=== PATIENT | female | born 1995 | race American Indian/Alaskan Native ===

== ENCOUNTER 2018-12-08 13:59 | Emergency (ER) | payer MEDICAID, OTHER ==
--- NOTE | 2018-12-08 14:31 | Emergency Department Report ---
Blank Doc - Documentation Documentation: 23 y o female LMP 09/2018 presents with pelvic cramping and back pain denies vag bleed, stated [facility] confirmed , urinary sx states vag d/c ua, labs, ACC
[2018-12-08] MEDS ORDERED: TYLENOL PO ONE (14:45)
--- NOTE | 2018-12-08 15:48 | Emergency Department Report ---
<STEPHANIE HAYWOOD - Last Filed: 12/08/18 15:47> ED HPI - General Chief complaint: Urogenital-Female Stated complaint: 10WKS /PAIN Time Seen by Provider: 12/08/18 14:25 Source: patient Mode of arrival: Ambulatory Limitations: No Limitations - History of Present Illness Initial comments: Patient is a 23-year-old female who is presenting with low abdominal crampiness. Patient states she is approximately 10 weeks the pain is worsened over the last day. Patient denies any vaginal bleeding or vaginal discharge or dysuria.. Patient was seen several weeks ago for urinary tract infection and states she took her antibiotics. Patient did have ultrasound that time to confirmed IUP. Patient denies any nausea vomiting. Pain is a 10 in severity. - Related Data Previous Rx's Medication Instructions Recorded Last Taken Type Acetaminophen [Tylenol] 325 mg PO DAILY PRN #20 capsule 12/08/18 Unknown Rx 21/Iron Fu/Folic Acid 1 each PO DAILY #30 tablet 12/08/18 Unknown Rx [ Complete Caplet] Allergies Allergy/AdvReac Type Severity Reaction Status Date / Time No Known Allergies Allergy Unverified 12/08/18 14:20 ED Review of Systems Comment: All other systems reviewed and negative ED Past Medical Hx - Past Medical History Previous Medical History?: Yes Additional medical history: Scoliosis - Surgical History Past Surgical History?: Yes Additional Surgical History: surgery for Scoliosis - Social History Smoking Status: Unknown if ever smoked Substance Use Type: None - Medications Home Medications: Home Medications Medication Instructions Recorded Confirmed Last Taken Type Acetaminophen [Tylenol] 325 mg PO DAILY PRN #20 capsule 12/08/18 Unknown Rx 21/Iron Fu/Folic Acid 1 each PO DAILY #30 tablet 12/08/18 Unknown Rx [ Complete Caplet] ED Physical Exam - General Limitations: No Limitations General appearance: alert, in no apparent distress - Head Head exam: Present: atraumatic, normocephalic - Eye Eye exam: Present: normal appearance - ENT ENT exam: Present: mucous membranes moist - Neck Neck exam: Present: normal inspection - Respiratory Respiratory exam: Present: normal lung sounds bilaterally. Absent: respiratory distress, wheezes, rales, rhonchi - Cardiovascular Cardiovascular Exam: Present: regular rate, normal rhythm. Absent: systolic murmur, diastolic murmur, rubs, gallop - GI/Abdominal GI/Abdominal exam: Present: soft, tenderness, normal bowel sounds. Absent: distended, guarding, rebound - Extremities Exam Extremities exam: Present: normal inspection - Back Exam Back exam: Present: normal inspection - Neurological Exam Neurological exam: Present: alert, oriented X3 - Psychiatric Psychiatric exam: Present: normal affect, normal mood - Skin Skin exam: Present: warm, dry, intact, normal color. Absent: rash ED Disposition Clinical Impression: Pelvic pain during Disposition: - TO HOME OR SELFCARE Condition: Stable Instructions: (ED) Additional Instructions: Follow-up with a OBGYN doctor in 3-5 days or if symptoms worsen and continue return to emergency room as soon as possible. Prescriptions: 21/Iron Fu/Folic Acid [ Complete Caplet] 1 each PO DAILY #30 tablet Acetaminophen [Tylenol] 325 mg PO DAILY PRN #20 capsule PRN Reason: Pain , Severe (7-10) [facility]Other] - 3-5 Days JULIOCESAR STERN MD [Staff Physician] - 3-5 Days [facility] [Provider Group] - 3-5 Days Forms: Work/School Release Form(ED) <MARY PAULINO - Last Filed: 12/08/18 18:23> ED Review of Systems ROS: Stated complaint: 10WKS /PAIN Other details as noted in HPI ED Course Vital Signs 12/08/18 12/08/18 14:27 14:56 Temperature 98 F Pulse Rate 70 Respiratory 18 16 Rate Blood Pressure 132/75 O2 Sat by Pulse 98 Oximetry ED Medical Decision Making - Lab Data Result diagrams: 12/08/18 16:20 12/08/18 16:20 - Medical Decision Making This is a 23-year-old female presents with pelvic pain with and UTI. Patient was orginally seen by Panda Pink and was signed out to me for a pending US results. Normal abdominal exam. US OB obtained and dictated by the radiologist. Ua obtained. Quantative serum test obtained. Patient notified of the US report with no questions noted by the patient. Labs unremarkable. Patient was instructed f/u with [facility] in 3-5 days. At time of discharge, the patient does not seem toxic or ill in appearance. No acute signs of distress noted. Patient agrees to discharge treatment plan of care. No further questions noted by the patient. Critical care attestation.: If time is entered above; I have spent that time in minutes in the direct care of this critically ill patient, excluding procedure time. ED Disposition Is pt being admited?: No Does the pt Need Aspirin: No
[2018-12-08 16:48] LABS: Basophils # (Auto) 0.1 K/mm3 (0.0-0.1); Basophils % (Auto) 0.5 % (0.0-1.8); Eosinophils # (Auto) 0.4 K/mm3 (0.0-0.4); Eosinophils % (Auto) 3.7 % (0.0-4.3); Lymphocytes # (Auto) 2.4 K/mm3 (1.2-5.4); Lymphocytes % (Auto) 25.6 % (13.4-35.0); Mean Corpuscular HGB Conc 37 % (30-34); Mean Corpuscular Volume 99 fl (79-97); Monocytes # (Auto) 0.9 K/mm3 (0.0-0.8); Monocytes % (Auto) 9.1 % (0.0-7.3); Platelet Count 311 K/mm3 (140-440); Red Blood Count 3.36 M/mm3 (3.65-5.03); Red Cell Distribution Width 12.6 % (13.2-15.2)
[2018-12-08 16:55] LABS: Hematocrit 33.4 % (30.3-42.9); Hemoglobin 12.3 gm/dl (10.1-14.3)
[2018-12-08 17:12] LABS: Alanine Aminotransferase 9 units/L (7-56); Albumin 3.9 g/dL (3.9-5); BUN/Creatinine Ratio 20; Blood Urea Nitrogen 8 mg/dL (7-17); Hemolysis Index 2
[2018-12-08 17:13] LABS: Bacteria,Urine 1+ /HPF (Negative); Bilirubin,Urine NEG (Negative); Blood,Urine LG (Negative); Color,Urine Yellow (Yellow); Mucus,Urine 3+ /HPF; RBC,Urine > 182.0 /HPF (0.0-6.0); Urobilinogen,Urine < 2.0 mg/dL (<2.0)
[2018-12-08 17:17] LABS: Bilirubin,Direct < 0.2 mg/dL (0-0.2)
--- NOTE | 2018-12-08 17:53 | Ultrasound Report ---
PROCEDURE: US OB <= 14 WEEKS FETUS TECHNIQUE: Early ultrasound using transabdominal and transvaginal imaging HISTORY: preg with abd pain . LMP 09/21/2018 with estimated age 11 weeks 1 day and EDC 06/28/2019. Bet a hCG quantitation 103,440 COMPARISONS: None FINDINGS: Uterus: Uterus is enlarged in size and normal and homogeneous in echogenicity without focal fibroid f ormation. The uterus measures 10.6 x 7.5 x 10.4 cm in size. There is a single early viable intraute rine gestation noted. Intrauterine gestation: There is a single intrauterine gestation identified with both a pole a nd yolk sac. heart rate is monitored at 162 BPM using M-mode doppler. Fedora-rump length measur ement of 4.2 cm corresponds to estimated age 11 weeks 0 days with EDC 06/29/2019. Ovaries: Both ovaries appear normal in size and echogenicity with normal bloodflow bilaterally. The right ovary measures 2.8 x 2.2 x 2.7 cm and the left ovary measures 3.3 x 1.9 x 1.8 cm in size. Kostas ateral complex cysts are seen. On the right, this measures 2.1 x 1.5 x 1.6 cm and is typical of a cor pus luteum with a thickened wall. On the left, this measures 1.6 x 1.2 x 1.0 cm and is typical of a h emorrhagic cyst with internal debris. Other: There is no evidence for solid adnexal mass is seen. There is no free fluid in the cul-de-s ac. IMPRESSION: Single intrauterine viable with an approximate age of 11 weeks 0 days. This document is electronically signed by Aminah Cherry MD., December 08 2018 05:51:45 PM ET
[2018-12-08 18:35] VITALS: BP 110/66
== END 2018-12-08 18:35 | disposition home or self-care (01) ==
LOC: ED 13:59
DX: O26.891 Other specified pregnancy related conditions, first trimester (principal); Z3A.10 10 weeks gestation of pregnancy
CPT/HCPCS: 36415; 76801; 76817; 80048; 80076; 81001; 83690; 84702; 85025; 99284

== ENCOUNTER 2019-02-16 14:28 | Outpatient (CLI) | payer MEDICAID ==
[2019-02-16 15:53] VITALS: BP 113/59
[2019-02-16] MEDS ORDERED: LACTATED RINGERS 500 ML IV ONE (17:00)
[2019-02-16] MEDS ORDERED: TYLENOL PO ONE (17:00)
[2019-02-16 17:45] LABS: Bacteria,Urine 1+ /HPF (Negative); Bilirubin,Urine NEG (Negative); Blood,Urine LG (Negative); Color,Urine Straw (Yellow); Mucus,Urine FEW /HPF; Urobilinogen,Urine < 2.0 mg/dL (<2.0)
== END 2019-02-16 18:40 | disposition home or self-care (01) ==
LOC: TRG 14:28
PROVIDERS: ATTEND Obstetrics & Gynecology
DX: O26.892 Other specified pregnancy related conditions, second trimester (principal); R25.2 Cramp and spasm; Z3A.19 19 weeks gestation of pregnancy
CPT/HCPCS: 59025; 81001; 96360; J7120

== ENCOUNTER 2019-03-03 16:32 | Outpatient (CLI) | payer MEDICAID ==
[2019-03-03 18:24] LABS: Bilirubin,Urine NEG (Negative); Blood,Urine LG (Negative); Color,Urine Yellow (Yellow); Mucus,Urine 1+ /HPF; Urobilinogen,Urine < 2.0 mg/dL (<2.0)
[2019-03-03 18:28] LABS: Protein,Urine >500 mg/dL (Negative)
[2019-03-03] MEDS ORDERED: LACTATED RINGERS 500 ML IV ONE (18:51)
[2019-03-03 20:15] VITALS: BP 119/79
--- NOTE | 2019-03-03 20:30 | Ultrasound Report ---
PROCEDURE: Limited obstetrical ultrasound. TECHNIQUE: Transabdominal scanning was performed to determine presentation and cervical length . HISTORY: cervical length COMPARISONS: Obstetrical ultrasound 12/08/2018. FINDINGS: There is a fetus in cephalic presentation. The cervical length is approximately 2.5 cm. Cardiac activ ity is documented at 128 bpm. IMPRESSION: Cervical length of 2.5 cm. This document is electronically signed by Keenan Saucedo MD., March 03 2019 08:28:51 PM ET
== END 2019-03-03 20:24 | disposition home or self-care (01) ==
LOC: TRG 16:32
PROVIDERS: ATTEND Obstetrics & Gynecology
DX: O47.02 False labor before 37 completed weeks of gestation, second trimester (principal); Z3A.22 22 weeks gestation of pregnancy
CPT/HCPCS: 36415; 59025; 76815; 81001; 82731; 87086

== ENCOUNTER 2019-04-29 17:23 | Outpatient (CLI) | payer MEDICAID ==
[2019-04-29 17:48] VITALS: BP 115/64
[2019-04-29] MEDS ORDERED: LACTATED RINGERS 1,000 ML IV SCH (18:00)
[2019-04-29 18:18] LABS: Bilirubin,Urine NEG (Negative); Blood,Urine LG (Negative); Color,Urine Yellow (Yellow); Mucus,Urine FEW /HPF
[2019-04-29 18:19] LABS: Protein,Urine >500 mg/dL (Negative)
[2019-04-29] MEDS ORDERED: ROCEPHIN/NS 1 GM/50 ML 1 GM/50 ML BAG IV ONE (19:58)
== END 2019-04-29 19:23 | disposition left against medical advice (07) ==
LOC: TRG 17:23
PROVIDERS: ATTEND Obstetrics & Gynecology
DX: O36.8130 Decreased fetal movements, third trimester, not applicable or unspecified (principal); O47.03 False labor before 37 completed weeks of gestation, third trimester; Z3A.31 31 weeks gestation of pregnancy
CPT/HCPCS: 59025; 81001; 87086; J0696; J7120

== ENCOUNTER 2019-06-27 19:49 | Inpatient (IN) | payer MEDICAID ==
[2019-06-27] MEDS ORDERED: SUBLIMAZE IV PRN (22:48)
[2019-06-27] MEDS ORDERED: BRETHINE SUB-Q PRN (22:48)
[2019-06-27] MEDS ORDERED: STADOL IV PRN (22:48)
[2019-06-27] MEDS ORDERED: CERVIDIL VG ONE (22:48)
[2019-06-27] MEDS ORDERED: BRETHINE IVP PRN (22:48)
[2019-06-27] MEDS ORDERED: AMBIEN PO PRN (22:52)
[2019-06-27] MEDS ORDERED: LACTATED RINGERS 1,000 ML IV SCH (23:00)
[2019-06-27 23:14] LABS: Hematocrit 27.2 % (30.3-42.9); Hemoglobin 9.3 gm/dl (10.1-14.3); Mean Corpuscular HGB Conc 34 % (30-34); Mean Corpuscular Volume 100 fl (79-97); Platelet Count 291 K/mm3 (140-440); Red Blood Count 2.71 M/mm3 (3.65-5.03); Red Cell Distribution Width 12.9 % (13.2-15.2)
--- NOTE | 2019-06-28 12:57 | History and Physical Report ---
History of Present Illness Date of examination: 06/28/19 Date of admission: 06/27/19 19:49 Chief complaint: IOl for IUGR at term per M Dr. Graves History of present illness: his is a 24 yo at 39 weeks here for IOL after having an appt for M notable IUGR and recommneded IOL. She is patient of [facility] and notable anxiety and depression no meds. 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 Treated for UTi with snehal neg. HX of shortened cervix at 20 weeks. She was also treated for trich and snehal neg. Past History Past Surgical History: other (breast bx ) [employer] History: herpes, trichomonas Family/Genetic History: diabetes, hypertension, other (bone cancer) Social history: single. denies: smoking, alcohol abuse - Obstetrical History Expected Date of Delivery: 06/29/19 Actual Gestation: 39 Week(s) 6 Day(s) : 2 Para: 1 Hx # Term Pregnancies: 1 Number of Pregnancies: 0 Spontaneous Abortions: 0 Induced : 0 Number of Living Children: 1 Medications and Allergies Allergies Allergy/AdvReac Type Severity Reaction Status Date / Time soy Allergy Itching Verified 06/28/19 06:35 Home Medications Medication Instructions Recorded Confirmed Last Taken Type Acetaminophen [Tylenol] 325 mg PO DAILY PRN #20 capsule 12/08/18 06/28/19 Unknown Rx 21/Iron Fu/Folic Acid 1 each PO DAILY #30 tablet 12/08/18 06/28/19 Unknown Rx [ Complete Caplet] valACYclovir [Valtrex] 500 mg PO BID 06/28/19 06/28/19 Unknown History Active Meds: Active Medications Butorphanol Tartrate (Stadol) 2 mg IV Q2H PRN PRN Reason: Pain , Severe (7-10) Fentanyl (Sublimaze) 100 mcg IV Q2H PRN PRN Reason: Labor Pain Lactated Ringer's (Lactated Ringers) 1,000 mls @ 125 mls/hr IV DIRECT CYRUS Terbutaline Sulfate (Brethine) 0.25 mg SUB-Q ONCE PRN PRN Reason: Hyperstimulation/Hypertonicity Terbutaline Sulfate (Brethine) 0.25 mg IVP ONCE PRN PRN Reason: Hyperstimulation/Hypertonicity Zolpidem Tartrate (Ambien) 5 mg PO QHS PRN PRN Reason: Sleep Last Admin: 06/27/19 23:55 Dose: 5 mg Documented by: Review of Systems All systems: negative - Vital Signs Vital signs: Vital Signs Temp Resp BP Pulse Ox 97.9 F 18 116/72 100 06/27/19 20:47 06/27/19 20:47 06/27/19 20:47 06/27/19 20:47 Temp Pulse Resp BP Pulse Ox 97.9 F 84 16 121/72 98 06/28/19 09:04 06/28/19 11:24 06/28/19 09:04 06/28/19 11:24 06/27/19 21:19 - Physical Exam Breasts: Positive: normal Cardiovascular: Regular rate, Normal S1 Lungs: Positive: Clear to auscultation, Normal air movement Abdomen: Positive: normal appearance, soft, normal bowel sounds. Negative: distention, tenderness, guarding Genitourinary (Female): Positive: normal external genitalia, normal perenium Vulva: both: normal Vagina: Positive: normal moisture Uterus: Positive: normal size Anus/Rectum: Positive: normal perianal skin Extremities: Positive: normal Deep Tendon Reflex Grade: Normal +2 - Obstetrical FHR: category 1 Cervical Dilatation: 5 Cervical Effacement Percentage: 60 station: -2 Uterine Contraction Pattern: Regular Uterine Tone Measurement Phase: Contraction Uterine Contraction Intensity: Moderate Results Result Diagrams: 06/27/19 21:30 Abnormal lab results 06/27/19 Range/Units 21:30 RBC 2.71 L (3.65-5.03) M/mm3 Hgb 9.3 L (10.1-14.3) gm/dl Hct 27.2 L (30.3-42.9) % MCV 100 H (79-97) fl MCH 34 H (28-32) pg RDW 12.9 L (13.2-15.2) % All other labs normal. Assessment and Plan A/P IUP 39+5 IUGR 5% IOL with pitocin s/p cervidil aoffer epidural ' consider amniotomy expect vaginal delivery
[2019-06-28] MEDS ORDERED: PITOCin/NS 20 UNIT/1000ML DRIP 20,000 MILLIUNITS/1,000 ML BAG IV ONE (13:14)
--- NOTE | 2019-06-28 14:42 | Event Note ---
Date: 06/28/19 Patient comfortable after AROM with light meconium sve /-2 continue pitocin for augmentation s/p epidural after had variable decels IUPC and FSE placed May consider amnioinfusion if decels are not corrected close monitor of and maternal status
[2019-06-28] MEDS ORDERED: NALOXONE IV PRN (14:44)
--- NOTE | 2019-06-28 14:52 | Anesthesia Consultation ---
Anesthesia Consult and Med Hx Date of service: 06/28/19 - Airway Anesthetic Teeth Evaluation: Good ROM Head & Neck: Adequate Mental/Hyoid Distance: Adequate Mallampati Class: Class II Intubation Access Assessment: Good - Pulmonary Exam CTA: Yes - Cardiac Exam Cardiac Exam: RRR - Pre-Operative Health Status ASA Pre-Surgery Classification: ASA2 Proposed Anesthetic Plan: Epidural - Pre-Anesthesia Comment Pre-Anesthesia Comments: PSH: Breast sx, Scoliosis sx at age 10. No anesthesia complications - Pulmonary Hx Smoking: No Hx Asthma: No Hx Respiratory Symptoms: No SOB: No COPD: No Home Oxygen Therapy: No Hx Pneumonia: No Hx Sleep Apnea: No - Cardiovascular System Hx Hypertension: No Hx Coronary Artery Disease: No Hx Heart Attack/AMI: No Hx Angina: No Hx Percutaneous Transluminal Coronary Angioplasty (PTCA): No Hx Cardia Arrhythmia: No Hx Pacemaker: No Hx Internal Defibrillator: No Hx Valvular Heart Disease: No Hx Heart Murmur: No - Central Nervous System Hx Neuromuscular Disorder: No (Scoliosis sx) Hx Seizures: No CVA: No Hx Back Pain: Yes Hx Psychiatric Problems: Yes (pt reports ppd and anxiety/depression, no medications) - Gastrointestinal Hx Ulcer: No Hx Gastroesophageal Reflux Disease: No - Endocrine Hx Renal Disease: No Hx End Stage Renal Disease: No Hx Cirrhosis: No Hx Liver Disease: No Hx Insulin Dependent Diabetes: No Hx Non-Insulin Dependent Diabetes: No Hx Thyroid Disease: No Hx Hypothyroidism: No Hx Hyperthyroidism: No - Hematic Hx Anemia: Yes Hx Sickle Cell Disease: No - Other Systems Hx Alcohol Use: No Hx Substance Use: No Hx Cancer: No Hx Obesity: No
[2019-06-28] MEDS ORDERED: fentaNYL-BUPIV 2 MCG/ML-0.125% 200 MCG/100 ML BAG EPIDURAL SCH (15:00)
--- NOTE | 2019-06-28 16:41 | Procedure Note ---
OB Delivery Note - Delivery Date of Delivery: 06/28/19 Surgeon: ERIC STERN Estimated blood loss: 300cc - Vaginal Delivery presentation: vertex Delivery position: OA Delivery induction: cervidil Delivery augmentation: rupture of membranes, pitocin Delivery monitor: external FHT, external uterine Route of delivery: Delivery placenta: spontaneous Delivery cord: 3 umbilical vessels Episiotomy: none Delivery laceration: 1st degree Delivery repair: vicryl Anesthesia: epidural Delivery comments: Maternal effort resulted in of viable female infant at 1607. Head delivered OA. Shoulders followed easily. Infant to maternal abdomen. Cord clamped and cut after delay of 1min. to warmer, with pediatric nurses . Apgars 8 and 9. Placenta delivered spontaneously and intact, 3VC at 1628. Pitocin infusing, fundus firm. First degree lacerations repaired with 3-0 vicryl in normal usual fashion. Patient bonding with baby. Tolerated procedure well - Infant A at 1 minute: 8 at 5 minutes: 9 Gender: Female (6 pounds 9 oz)
[2019-06-28] MEDS ORDERED: NORCO 5/325 PO PRN (16:44)
[2019-06-28] MEDS ORDERED: MILK OF MAGNESIA PO PRN (16:44)
[2019-06-28] MEDS ORDERED: PERCOCET 5/325 PO PRN (16:44)
[2019-06-28] MEDS ORDERED: DULCOLAX PR PRN (16:44)
[2019-06-28] MEDS ORDERED: ZOFRAN IV PRN (16:44)
[2019-06-28] MEDS ORDERED: BENADRYL PO PRN (16:44)
[2019-06-28] MEDS ORDERED: LANSINOH TP PRN (16:44)
[2019-06-28] MEDS ORDERED: PHENERGAN PR PRN (16:44)
[2019-06-28] MEDS ORDERED: TORADOL IV PRN (16:44)
[2019-06-28] MEDS ORDERED: PHENERGAN PO PRN (16:44)
[2019-06-28] MEDS ORDERED: TYLENOL PO PRN (16:44)
[2019-06-28] MEDS ORDERED: TUCKS PAD TP PRN (16:44)
[2019-06-28] MEDS ORDERED: SENOKOT S PO SCH (17:00)
[2019-06-28] MEDS ORDERED: SODIUM CHLORIDE FLUSH SYRINGE 10 ML IV NR (17:00)
[2019-06-28] MEDS ORDERED: PITOCin/NS 20 UNIT/1000ML DRIP 20 UNITS/1,000 ML BAG IV SCH (17:00)
[2019-06-28] MEDS: IBUPROFEN PO SCH ×2 (20:46)
[2019-06-28] MEDS: COLACE PO SCH ×2 (20:47)
[2019-06-29] MEDS: IBUPROFEN PO SCH ×2 (05:01→10:02)
[2019-06-29] MEDS ORDERED: M-M-R II VACCINE SUB-Q ONE (06:00)
[2019-06-29] MEDS ORDERED: BOOSTRIX IM ONE (06:00)
[2019-06-29 06:40] LABS: Hematocrit 24.5 % (30.3-42.9); Hemoglobin 8.4 gm/dl (10.1-14.3)
--- NOTE | 2019-06-29 08:01 | Progress Note ---
Assessment and Plan A/p PPD 1 chronic anemia iron implemented hgb 9-8 routine PP care Subjective - Subjective Date of service: 06/29/19 Principal diagnosis: Interval history: his is a 24 yo at 39 weeks here for IOL after having an appt for [facility] notable IUGR and recommneded IOL. She is patient of [facility] and notable anxiety and depression no meds. 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 Treated for UTi with snehal neg. HX of shortened cervix at 20 weeks. She was also treated for trich and snehal neg. Patient reports: appetite normal, voiding normally, pain well controlled, flatus, ambulating normally [place]: doing well Objective - Vital Signs Latest vital signs: Vital Signs Temp Pulse Resp BP Pulse Ox 06/29/19 05:01 18 06/29/19 01:11 98.1 F 69 20 101/55 97 06/28/19 18:28 98.0 F 18 109/71 06/28/19 17:57 92 H 115/64 06/28/19 17:42 82 111/59 06/28/19 17:27 87 107/58 06/28/19 17:12 79 102/56 06/28/19 16:57 77 108/57 06/28/19 16:41 91 H 94 06/28/19 16:40 99 H 98 06/28/19 16:36 86 70 L 06/28/19 16:35 70 L 06/28/19 16:30 90 99 06/28/19 16:25 119 H 100 06/28/19 16:20 110 H 98 06/28/19 16:15 122 H 100 06/28/19 16:13 76 74 L 06/28/19 16:10 95 H 100 06/28/19 16:05 89 100 06/28/19 16:00 80 100 06/28/19 15:55 75 100 06/28/19 15:50 96 H 100 06/28/19 15:45 71 100 06/28/19 15:40 80 100 06/28/19 15:35 75 100 06/28/19 15:30 73 100 06/28/19 15:25 82 99 06/28/19 15:20 84 100 06/28/19 15:15 70 100 06/28/19 15:10 79 100 06/28/19 15:05 81 100 06/28/19 15:00 69 100 06/28/19 14:55 73 100 06/28/19 14:50 78 100 06/28/19 14:49 77 94 06/28/19 14:45 71 100 06/28/19 14:40 77 116/62 97 06/28/19 14:35 73 100 06/28/19 14:30 75 100 06/28/19 14:25 77 100 06/28/19 14:20 79 100 06/28/19 14:15 81 100 06/28/19 14:10 71 98 06/28/19 14:09 68 114/60 06/28/19 14:05 86 85 06/28/19 14:00 77 100 06/28/19 13:55 55 L 155/68 100 06/28/19 11:24 84 121/72 06/28/19 09:04 97.9 F 16 Intake and Output 06/28/19 06/29/19 06/29/19 23:59 07:59 15:59 Intake Total 720 Output Total 950 Balance -230 Intake: Oral 720 Output: Urine 950 Void 950 Other: Total, Intake Amount 360 Total, Output Amount 550 Estimated Blood Loss 300 - Exam Breasts: Present: normal Cardiovascular: Present: Regular rate, Normal S1 Lungs: Present: Clear to auscultation, Normal air movement Abdomen: Present: normal appearance, soft, normal bowel sounds. Absent: distention, tenderness, guarding Vulva: both: normal Uterus: Present: normal, firm, fundal height below umbilicus. Absent: bogginess, tenderness Extremities: Present: normal Deep Tendon Reflex Grade: Normal +2 - Labs Labs: Abnormal lab results 06/29/19 Range/Units 05:43 Hgb 8.4 L (10.1-14.3) gm/dl Hct 24.5 L (30.3-42.9) %
--- NOTE | 2019-06-29 08:03 | Discharge Summary ---
Providers - Providers Date of Admission: 06/28/19 19:49 Date of discharge: 06/30/19 Attending physician: TWIN BALLESTEROS Primary care physician: TWIN BALLESTEROS Hospitalization Reason for admission: induction of labor Delivery: Episiotomy: none Laceration: none Incision: normal Other procedures: none complications: none Discharge diagnosis: IUP at term delivered [place] baby: female Hospital course: Patient induced for IOL for IUGR. Deliveredd a viable female . chronic anemia on iron. Discharge home on PP day 2. Condition at discharge: Good Disposition: DC-01 TO HOME OR SELFCARE Plan - Provider Discharge Summary Additional instructions: [] Smoking cessation referral if applicable(refer to patient education folder for contact #) [] Refer to [facility] Booklet Call your doctor immediately for: * Fever > 100.5 * Heavy vaginal bleeding ( >1 pad per hour) * Severe persistent headache * Shortness of breath * Reddened, hot, painful area to leg or breast * Drainage or odor from incision. * Keep incision clean and dry at all times and follow doctor's instructions regarding bathing/showering - Follow up plan Follow up: TWIN BALLESTEROS MD [Primary Care Provider] - 7 Days
[2019-06-29] MEDS ORDERED: PRENATAL VITAMIN PO SCH (10:00)
[2019-06-29] MEDS: COLACE PO SCH (10:03)
[2019-06-29] MEDS ORDERED: FEOSOL PO SCH (14:00)
[2019-06-29 19:01] VITALS: BP 108/73
== END 2019-06-29 19:30 | disposition home or self-care (01) | DRG 775 ==
LOC: LD 19:49 → UNDOADMIN 19:49 → LD 19:51 → OB 06-28 18:44 → LD 06-28 18:44 → OB 06-28 19:49
PROVIDERS: ADMIT Obstetrics & Gynecology; ATTEND Obstetrics & Gynecology
PROC: 10E0XZZ Delivery of Products of Conception, External Approach (ICD-10-PCS; principal; 2019-06-28)
PROC: 3E0P7VZ Introduction of Hormone into Female Reproductive, Via Natural or Artificial Opening (ICD-10-PCS; 2019-06-28)
PROC: 3E0R3BZ Introduction of Anesthetic Agent into Spinal Canal, Percutaneous Approach (ICD-10-PCS; 2019-06-28)
PROC: 00HU33Z Insertion of Infusion Device into Spinal Canal, Percutaneous Approach (ICD-10-PCS; 2019-06-28)
PROC: 0HQ9XZZ Repair Perineum Skin, External Approach (ICD-10-PCS; 2019-06-28)
PROC: 10907ZC Drainage of Amniotic Fluid, Therapeutic from Products of Conception, Via Natural or Artificial Opening (ICD-10-PCS; 2019-06-28)
PROC: 10H07YZ Insertion of Other Device into Products of Conception, Via Natural or Artificial Opening (ICD-10-PCS; 2019-06-28)
PROC: 3E0234Z Introduction of Serum, Toxoid and Vaccine into Muscle, Percutaneous Approach (ICD-10-PCS; 2019-06-29)
DX: O36.5930 Maternal care for other known or suspected poor fetal growth, third trimester, not applicable or unspecified (principal); O99.344 Other mental disorders complicating childbirth; F41.9 Anxiety disorder, unspecified; F32.9 Major depressive disorder, single episode, unspecified; O77.0 Labor and delivery complicated by meconium in amniotic fluid; O99.02 Anemia complicating childbirth; D64.9 Anemia, unspecified; O70.0 First degree perineal laceration during delivery; Z3A.39 39 weeks gestation of pregnancy; Z37.0 Single live birth; Z82.49 Family history of ischemic heart disease and other diseases of the circulatory system; Z83.3 Family history of diabetes mellitus; Z80.8 Family history of malignant neoplasm of other organs or systems; Z79.899 Other long term (current) drug therapy; Z23 Encounter for immunization
CPT/HCPCS: 36415; 59200; 85014; 85018; 85027; 86592; 86850; 86900; 86901; 88307; G0378; A6250; J2590; J3010; J7120